=== PATIENT | female | born 1955 | race Caucasian/White ===

== ENCOUNTER → 2018-11-30 | Day surgery (SDC) | payer MEDICARE ==
[~2018-11-30] MED LIST: ACETAMINOPHEN 1,000 MG/100 ML BTL IV ONE; BUPIVACAINE 0.5% W/EPI MPF 30 ML VIAL IVP ONE; CLINDAMYCIN PHOS/D5W 900MG 900 MG/50 ML BAG IVPB ONE; DEXAMETHASONE 4 MG/ML 1ML VIAL IVP ONE; FENTANYL PF 100MCG/2ML VIAL IV ONE; LIDOCAINE 2% MDV (20MG/ML) 20ML VIAL IV ONE; MIDAZOLAM HCL 2MG/2ML VIAL IV ONE; MORPHINE SULFATE 4 MG/ML VIAL ONE; ONDANSETRON HCL IV 4 MG/2 ML VIAL IVP ONE; PROPOFOL 10 MG/ML VIAL IV ONE; SEVOFLURANE 250 ML INH ONE
--- NOTE | 2018-12-01 08:50 | Operative Note ---
DATE OF SURGERY: 11/30/2018 PREOPERATIVE DIAGNOSIS: Loose body, left knee. POSTOPERATIVE DIAGNOSES: 1. Loose body, left knee. 2. 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 OPERATION: 1. Left knee arthroscopy with removal of loose body. 2. Left knee arthroscopy with chondroplasty of patellofemoral compartment. Staff Surgeon: Kirby Walker MD Anesthesia: General. Preparation: Chloraprep. Individual Considerations: None. PROCEDURE: The patient was taken to the operating room and placed supine on the operating room table. She had a successful induction of a general anesthetic. Her left lower extremity was prepped and draped in the usual fashion. The patient had a superolateral inflow cannula placed. Skin was infiltrated with 0.5% Marcaine with epinephrine prior. The knee was inflated with normal saline. An inferomedial and an inferolateral portal were made in a similar fashion. The arthroscope was introduced through the inferolateral portal up into the pouch. Patellofemoral joint showed basically large osteophytes inferiorly and grade 3-4 changes throughout. This was smoothed off with a shaver. There was synovitis in both pouches and gutter which was limited, which was debrided. Medial compartment structures were well seen and found to be normal. The notch basically in front of the ACL was a large loose body. This was removed easily with a grasper. The ACL and PCL were intact. Lateral compartment structures were normal. The knee was then irrigated out with saline to remove loose floating debris. Portals were closed with chuyita, and 20 mL of 0.25% plain Marcaine along with 4 mg of morphine and 40 mg of Depo-Medrol were injected into the knee. A sterile bulky compressive dressing was applied. The patient tolerated the procedure well. Needle and sponge counts were correct. Estimated blood loss was minimal. She was taken back to recovery in good condition. There were no complications. [facility]ITAL[facility]
== END | disposition home or self-care (01) ==
LOC: SUR 12:46
PROVIDERS: ATTEND Orthopaedic Surgery
DX: M23.42 Loose body in knee, left knee (principal); M22.42 Chondromalacia patellae, left knee; E03.9 Hypothyroidism, unspecified
CPT/HCPCS: J2270; J2405; J3490